=== PATIENT | female | born 1985 | race Caucasian/White ===

== ENCOUNTER → 2018-03-22 | Day surgery (SDC) | payer OTHER ==
[~2018-03-22] MED LIST: IV RINGERS,LACTATED 1000ML 1,000 ML IV SCH; LIDOCAINE 2% PF 2ML VIAL. ONE; OMEP20TA63 PO; PROPOFOL 20 ML IV ONE
[2018-03-22 10:07] LABS: U PREG PATIENT NEGATIVE (NEG)
[2018-03-22 11:05] VITALS: BP 120/81
--- NOTE | 2018-03-22 13:21 | HP ---
ADMIT DATE: 03/22/2018 UPDATE HISTORY AND PHYSICAL REASON FOR PRESENTATION: Dysphagia. HISTORY OF PRESENT ILLNESS: A 32-year-old female whose past medical history is significant for dysphagia, gastroesophageal reflux disease and asthma, seen with worsening solids and liquids. Previous studies have been unhelpful as well as previous endoscopy approximately 6 months previously. She has had some diplopia, but myasthenia gravis panel titers have been normal. There is no family history of connective tissue disorder, such as scleroderma, lupus or myasthenia gravis with continued symptoms. She is here today. PAST MEDICAL HISTORY: GERD, gastric ulcer, dysphagia and asthma. ALLERGIES: None. MEDICATIONS: Include omeprazole 20 mg daily. FAMILY AND SOCIAL HISTORY: Hypertension with her mother and myocardial infarction with her father. She is a social drinker, nonsmoker. PAST SURGICAL HISTORY: Status post , cholecystectomy and tonsillectomy. REVIEW OF SYSTEMS: Per records. PHYSICAL EXAMINATION: GENERAL: Reveals a well-nourished, well-developed female. VITAL SIGNS: Temperature is 98, pulse 74 and respiratory rate is 18. HEENT EXAMINATION: Reveals normocephalic and atraumatic. Pupils and extraocular muscles are not tested. Sclerae anicteric. NECK: Supple. LUNGS: Clear. CARDIOVASCULAR EXAMINATION: Reveals an S1, S2 without S3, S4 or appreciable murmur. ABDOMEN: Examination reveals soft abdomen. Normal bowel sounds, without appreciable hepatosplenomegaly, with the right upper quadrant cholecystectomy incision. EXTREMITIES: Examination reveals no cyanosis, clubbing or edema. IMPRESSION AND PLAN: Dysphagia, etiology is to be determined. Differential includes connective tissue disorder such as lupus or scleroderma, possible CREST syndrome, achalasia, eosinophilic esophagitis, Morgan's and paraesophageal hernia, among others. Therefore, recommend upper endoscopy with possible biopsy and dilatation. If this is unhelpful, esophageal manometry may be pursued as well as autoimmune workup. ISAIAS CORNELL MD DR: LIA/valentni JOB#: [id number] / [id number]
--- NOTE | 2018-03-25 16:10 | PATHOLOGY ---
[facility] Accession Number: [id number] . 01 Material submitted: . DISTAL ESOPHAGEAL BX . 01 Clinician provided ICD-10: R13.10 . 01 Clinical history: . Dysphagia . 02 Diagnosis: Esophageal biopsies, distal esophagus: - Segments of hyperplastic squamous esophageal mucosa consistent with reflux esophagitis. (JPM:chucho; 03/25/2018) QMS/03/25/2018 . 02 Comment: Sections of the distal esophageal biopsy reveal segments of tangentially oriented, hyperplastic squamous esophageal mucosa. The findings are consistent with reflux esophagitis. There is no evidence of Morgan's change, dysplasia, or malignancy. (JPM:chucho; 03/25/2018) . 02 Electronically signed: . Gibran Live MD, Pathologist NPI- [id number] . 01 Gross description: . Received in formalin labeled "Narda Hong, distal esophageal BX's," are 5 segments of rivas soft tissue measuring 0.9 x 0.6 x 0.1 cm in aggregate dimensions and ranging from 0.2 to 0.4 cm in maximum dimension. The specimen is submitted entirely in cassette A1. (TSD; 03/22/2018) TOB/TOB . 02 Pathologist provided ICD-10: K21.0 . 02 CPT . 030376 Specimen Comment: A courtesy copy of this report has been sent to Specimen Comment: [phone], . Specimen Comment: Report sent to / DR GOODSON Performed at: 01 [facility] [address], [place], [place] [id number] MD Scott Tyler MD Phone: [phone] Performed at: 02 [facility] [address], [place] [id number] MD Gibran Live MD Phone: [phone]
== END | disposition home or self-care (01) ==
LOC: ENDOS 08:39
PROVIDERS: ATTEND Internal Medicine Gastroenterology
DX: K22.2 Esophageal obstruction (principal); K21.0 Gastro-esophageal reflux disease with esophagitis; J45.909 Unspecified asthma, uncomplicated; Z79.899 Other long term (current) drug therapy; Z82.49 Family history of ischemic heart disease and other diseases of the circulatory system; Z72.89 Other problems related to lifestyle; Z90.49 Acquired absence of other specified parts of digestive tract; Z98.890 Other specified postprocedural states; Z88.8 Allergy status to other drugs, medicaments and biological substances
CPT/HCPCS: 43239; 43450; 81025; 88305; J2001; J2704